=== PATIENT | male | born 1980 | race Caucasian/White ===

== ENCOUNTER → 2018-07-22 15:48 | Outpatient (CLI) | payer BC, SELFPAY ==
--- NOTE | 2018-07-22 09:10 | COLBX_PTH ---
PATIENT: MICHELINE IBRAHIM LOC: [facility] U#:[id number] AGE/SX: 44/M ROOM: RE07/22/[address]: Dr. Nishant Bonds MD : [id number] BED: DIS: SPEC #: [id number] RECD: 07/22/18 15:30 STATUS: THELMA MAX #: [id number] PUNEET: 07/22/18 09:[address]: Nishant Bonds DEPT: SURGICAL PATHOLOGY RECD BY: Jaron Pierson ENTERED: 07/25/18 08:02 SP TYPE: COLON BX OTHR DR: No Primary Care Phys [facility] Tissues: Sigmoid colon biopsy Procedures: Surgery Specimen Level IV HEADER OPERATION: Colonoscopy with biopsy PRE-OP DIAGNOSIS: Diverticulitis / abdomen pain TISSUE SUBMITTED: Sigmoid (20 cm) polyp biopsy, rule out adenoma MICROSCOPIC DIAGNOSIS Sigmoid colon polyp at 20 cm, biopsy: Hyperplastic polyp. AM:ricardo 07/26/18 MICROSCOPIC DESCRIPTION Slides are reviewed. GROSS DESCRIPTION Received in fixative is one container labeled with the patient's name and designated sigmoid (20 cm). The specimen consists of multiple irregular fragments of light gu soft tissue that in aggregate measure 0.4 x 0.4 x 0.1 cm. The specimen is totally submitted in one cassette. / SJ:ricardo 07/25/18 TC:5 CPT: 54094
== END ==
PROVIDERS: Referring Provider Internal Medicine Gastroenterology; Visit Provider Internal Medicine Gastroenterology
DX: K63.5 Polyp of colon (principal)
CPT/HCPCS: 88305